=== PATIENT | female | born 1960 | race Native Hawaiian/Other Pacific Islander ===

== ENCOUNTER 2017-10-23 10:21 | Day surgery (SDC) | payer OTHER ==
[~2017-10-23] VITALS: Ht 30.5 cm; Wt 0.5 kg
== END 2017-10-23 12:16 | disposition home or self-care (01) ==
LOC: OR 10:21
PROC: 08RJ3JZ Replacement of Right Lens with Synthetic Substitute, Percutaneous Approach (ICD-10-PCS; principal; 2017-10-23)
DX: H25.811 Combined forms of age-related cataract, right eye (principal)
CPT/HCPCS: 66984; J2250; V2632